=== PATIENT | female | born 1990 | race Caucasian/White ===

== ENCOUNTER 2020-01-31 05:58 | Inpatient (IN) | payer BC ==
[~2020-01-31] VITALS: Ht 167.6 cm; Wt 72.6 kg
[2020-01-31 06:05] VITALS: BP 120/81
--- NOTE | 2020-01-31 06:05 | NUR ---
ED Nurse Note: Pt [facility] from home pt c/o severe mid to lower back pain 10/10 radiating to legs bilaterally. Pt reports she was exercising on a stationary bike and felt a muscle spasm 2 days ago, since then pt has difficulty walking d/t the pain. Pt denies traumatic injury, denies numbness, tingling on lower extremities.
[2020-01-31] MEDS ORDERED: Methocarbamol 750mg tab ORAL ONE (06:45)
[2020-01-31] MEDS ORDERED: Ketorolac 30mg Inj IV ONE (06:45)
[2020-01-31] MEDS ORDERED: Morphine Sulfate 4mg/ml Inj (IV USE ONLY) IVP ONE (07:15)
[2020-01-31 07:53] LABS: BASOPHILS % (AUTO) 1.1 % (0.0-2.0); EOSINOPHILS % (AUTO) 2.8 % (0.0-3.0); HEMATOCRIT 40.2 % (37.0-47.0); HEMOGLOBIN 13.1 G/DL (12.0-16.0); LYMPHOCYTES % (AUTO) 25.7 % (20.0-45.0); MEAN CORPUSCULAR VOLUME 94 FL (80-99); MONOCYTES % (AUTO) 6.9 % (1.0-10.0); NEUTROPHILS % (AUTO) 63.6 % (45.0-75.0); PLATELET COUNT 206 K/UL (150-450); RED BLOOD COUNT 4.28 M/UL (4.20-5.40); RED CELL DISTRIBUTION WIDTH 11.2 % (11.6-14.8); WHITE BLOOD COUNT 7.1 K/UL (4.8-10.8)
[2020-01-31 08:24] LABS: ANION GAP 8 mmol/L (5-15); BLOOD UREA NITROGEN 18 mg/dL (7-18); CALCIUM 8.5 MG/DL (8.5-10.1); CARBON DIOXIDE 26 MMOL/L (21-32); CHLORIDE 104 MMOL/L (98-107); CREATININE 0.8 MG/DL (0.55-1.30); SODIUM 138 MMOL/L (136-145)
[2020-01-31 08:29] LABS: ALANINE AMINOTRANSFERASE 27 U/L (12-78); ALBUMIN/GLOBULIN RATIO 1.4 (1.0-2.7); ALKALINE PHOSPHATASE 42 U/L (46-116); ASPARTATE AMINO TRANSFERASE 18 U/L (15-37); BILIRUBIN,TOTAL 0.4 MG/DL (0.2-1.0)
--- NOTE | 2020-01-31 09:10 | NUR ---
ED Nurse Note: Pt uanble to provide urine at this time. ERMD notified.
--- NOTE | 2020-01-31 09:30 | NUR ---
ED Nurse Note: Pt taken to MRI via gurney accompanied by a tech.
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
--- NOTE | 2020-01-31 10:41 | NUR ---
ED Nurse Note: Pt returned from MRI, not in any distress.
--- NOTE | 2020-01-31 10:46 | Diagnostic Imaging Report ---
EXAM: MR Lumbar Spine Without Intravenous Contrast CLINICAL HISTORY: BK PAIN TECHNIQUE: Magnetic resonance images of the lumbar spine without intravenous contrast in multiple planes. COMPARISON: No relevant prior studies available. FINDINGS: There are 5 lumbar-type vertebral bodies. The normal-appearing conus medullaris. The thecal sac terminates at S1-S2. The vertebral body heights and alignment are maintained. Mild straightening of the lumbar lordosis. There is no evidence of ligamentous injury. The bone marrow signal is homogeneous. At T12-L1: No spinal canal stenosis. At L1-L2: No spinal canal or foraminal stenosis. No disc bulge or herniation. At L2-L3: No spinal canal or foraminal stenosis. No disc bulge or herniation. At L3-L4: No spinal canal or foraminal stenosis. No disc bulge or herniation. At L4-L5: Central disc herniation (6 mm AP) with annular tear (high intensity zone), which contributes to mild spinal canal stenosis. No foraminal stenosis. At L5-S1: No spinal canal or foraminal stenosis. No disc bulge or herniation. Evaluation of the paraspinal musculature demonstrates no significant atrophy. The visualized intra-abdominal contents are grossly unremarkable. IMPRESSION: L4-L5: Central disc herniation (6 mm AP) with annular tear (high intensity zone), which contributes to mild spinal canal stenosis. No foraminal stenosis.
[2020-01-31] MEDS ORDERED: HYDROcodone/Acetamin 5/325 tab ORAL ONE (11:00)
--- NOTE | 2020-01-31 11:10 | NUR ---
ED Nurse Note: Urine sent to lab.
[2020-01-31 11:38] LABS: APPEARANCE,URINE SLIGHTLY CLOUDY; BILIRUBIN, URINE NEGATIVE (NEGATIVE); COLOR,URINE PALE YELLOW; GLUCOSE, URINE (UA) NEGATIVE (NEGATIVE); KETONES,URINE NEGATIVE (NEGATIVE); LEUKOCYTE ESTERASE ,URINE NEGATIVE (NEGATIVE); NITRITE,URINE NEGATIVE (NEGATIVE); PH,URINE 6 (4.5-8.0); PROTEIN,URINE NEGATIVE (NEGATIVE); UROBILINOGEN,URINE NORMAL MG/DL (0.0-1.0)
--- NOTE | 2020-01-31 12:00 | NUR ---
TRANSFER TO FLOOR: Patient transferred to [facility] via rney accompanied by a tech. Pt AAOx4, verbally responsive. No SOB, on room air. IV line on left AC 20g patent and intact. No skin issues. All belongings sent with the patient.
--- NOTE | 2020-01-31 12:01 | NUR ---
ED Nurse Note: Report given to Perla ODOM.
[2020-01-31 12:02] VITALS: BP 118/74
[2020-01-31] MEDS ORDERED: LAMICTAL150 MG ORAL (12:04)
[2020-01-31] MEDS ORDERED: VIMPAT100 MG PO (12:04)
[2020-01-31 12:10] VITALS: BP 144/83
--- NOTE | 2020-01-31 12:10 | NUR ---
NURSE NOTES: Report received from Alisa ODOM, in ER. Patient received to 314-2 via gurney on RA in stable condition. LAC saline lock intact, site asymptomatic, flushed, patent. Oriented patient to room and call light. Belongings reviewed and signed by patient (banda recounted with patient). Seizure pads applied to siderails. Patient denies any rest falls. Lidocaine patch to lower back. Offered ice compress or heating pad, patient refused at this time.Neuros intact, skin warm, pulses palpable, no NT, wiggles, moves all extremities. Lower back pain 5/10, will review orders and medicate as needed. Pill box sent down to pharmacy security, patient aware. Call light in reach, bed in lowest position, will continue to monitor.
[2020-01-31] MEDS ORDERED: Cyclobenzaprine 10mg Tab ORAL SCH (13:45)
[2020-01-31] MEDS ORDERED: Morphine Sulfate 2mg/ml Inj(IV/IM USE ONLY) IVP PRN ×2 (13:45→21:00)
--- NOTE | 2020-01-31 14:45 | NUR ---
NURSE NOTES: Spoke with Dyan in Pharmacy, due to scheduled Motrin and Flexeril (was on eMAR for now), but patient would like Morphine 1 mg IVP now instead, discussed with Dyan if Motrin and Flexeril can be given an hour after Morphine and then again at scheduled 1800, Dyan confirmed it's okay to give. See eMAR. Addendum: 01/31/20 at 1822 by Cailin Barclay RN Spoke with Shey Zaidi.
[2020-01-31] MEDS ORDERED: FOLIC ACID1 MG ORAL (15:05)
--- NOTE | 2020-01-31 16:30 | NUR ---
NURSE NOTES: Patient requesting copy of her MRI results (done today), Medical Records form provided, completed by patient and sent down to Medical Records office, slid form under door.
[2020-01-31 17:37] VITALS: BP 103/60
--- NOTE | 2020-01-31 18:22 | NUR ---
NURSE NOTES: Reviewed eMAR with Shey in pharmacy once more regarding timing for Motrin and Flexeril, per Shey times will be reviewed and administration times will be edited.
--- NOTE | 2020-01-31 19:08 | NUR ---
NURSE NOTES: Dr. Steele notified that patient complains of constipation (bowel sounds present/hypoactive and able to pass gas), last BM 01/27 and would like a higher dose of Morphine, orders received. Will update patient.
--- NOTE | 2020-01-31 19:11 | NUR ---
NURSE HAND-OFF: Important Events on Shift:ER admission at 1210, pain management, PT evaluation 01/31 Patient Status: stable Diet: regular Pending Orders: PT evaluation Pending Results/Labs:none Pending MD notification:none Latest Vital Signs: Temperature 98.7 , Pulse 68 , B/P 103 /60 , Respiratory Rate 19 , O2 SAT 99 , Room Air, O2 Flow Rate . Vital Sign Comment: none Latest Braswell Fall Score: 35 Fall Risk: Medium Risk Safety Measures: Call light Within Reach, Bed Alarm , Side Rails Side Rails x2, Bed position Low and Locked. Fall Precautions: Yellow Socks Yellow Gown Door Sign Patient Fall Education Report given to Mariana RN.
[2020-01-31] MEDS ORDERED: Lactulose 20gm/30ml UDC ORAL PRN (19:30)
--- NOTE | 2020-01-31 19:30 | NUR ---
NURSE NOTES: Receive a report from ILENE Simeon. Pt is awake and alert. Expressing difficulty in ambulating d/t back pain and numbness in right thigh. Will provide pain medication as ordered. IV on left AC without infiltration. BSC is next to bed. Last seizure attack was 1&1/2 years ago. Padded on both side rails. Call light within reach. Will continue to monitor.
[2020-01-31 20:00] VITALS: BP 95/60
[2020-01-31] MEDS ORDERED: Lacosamide 50mg tablet ORAL SCH (21:00)
--- NOTE | 2020-01-31 21:30 | NUR ---
NURSE NOTES: Given prn Morphine 2mg IVS for back pain and Lactulose for constipation. Encourage oral hydration. Will continue to monitor.
[2020-01-31] MEDS: Docusate 250mg cap ORAL SCH (21:58)
[2020-01-31] MEDS: Morphine Sulfate 2mg/ml Inj(IV/IM USE ONLY) IVP PRN (22:00)
[2020-02-01] VITALS: BP 89/58
[2020-02-01 04:00] VITALS: BP 103/65
[2020-02-01] MEDS: Morphine Sulfate 2mg/ml Inj(IV/IM USE ONLY) IVP PRN (04:07)
--- NOTE | 2020-02-01 07:20 | NUR ---
NURSE HAND-OFF: Important Events on Shift: back pain-morphine 2x, constipated-given prn medication Patient Status: [stable] Diet: [regular diet] Pending Orders: [-] Pending Results/Labs:[-] Pending MD notification:[oral pain medication] Latest Vital Signs: Temperature 98.2 , Pulse 77 , B/P 103 /65 , Respiratory Rate 18 , O2 SAT 95 , Room Air, O2 Flow Rate . Vital Sign Comment: [] Latest Braswell Fall Score: 35 Fall Risk: Medium Risk Safety Measures: Call light Within Reach, Bed Alarm , Side Rails Side Rails x2, Bed position Low and Locked. Fall Precautions: Yellow Socks Patient Fall Education Report given to ILENE Simeon.
--- NOTE | 2020-02-01 07:24 | NUR ---
NURSE NOTES: Report received from o RN, rounds made. Patient resting in semi-fowlers position in bed. AOx4, calm, respirations even/unlabored on RA. Lower back pain 5/10, denies need for pain medication at this time. LAC saline lock intact, site asymptomatic. Encouraged PO fluid intake. Up to BSC with assist. Plans for PT evaluation today. Call light in reach, bed in lowest position, will continue to monitor.
[2020-02-01 08:00] VITALS: BP 122/69
[2020-02-01] MEDS ORDERED: Cyclobenzaprine 10mg Tab ORAL SCH (09:00)
[2020-02-01] MEDS: Docusate 250mg cap ORAL SCH ×2 (09:43→18:23)
[2020-02-01] MEDS ORDERED: HYDROcodone/Acetamin 5/325 tab ORAL PRN (10:15)
[2020-02-01] MEDS ORDERED: HYDROcodone/Acetamin 10/325 tab ORAL PRN (10:15)
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
--- NOTE | 2020-02-01 10:49 | Consultation ---
History of Present Illness General Date patient seen: Feb 01, 2020 Chief Complaint: Present Illness Allergies: Coded Allergies: No Known Allergies (Unverified , 01/31/20) Medication History Scheduled Folic Acid* (Folic Acid*), 1 MG ORAL DAILY, (Reported) Lacosamide (Vimpat), 100 MG PO BID, (Reported) Lamotrigine* (Lamictal*), 200 MG ORAL TWICE A DAY, (Reported) Patient History Healthcare decision maker N Resuscitation status Advanced Directive on File Physical Exam Last 24 Hour Vital Signs Date Time Temp Pulse Resp B/P (MAP) Pulse Ox O2 Delivery O2 Flow Rate FiO2 02/01/20 04:00 98.2 77 18 103/65 (78) 95 02/01/20 00:00 98.2 76 18 89/58 (68) 95 01/31/20 21:00 Room Air 01/31/20 20:00 98.4 74 18 95/60 (72) 97 01/31/20 17:37 98.7 68 19 103/60 (74) 99 01/31/20 12:14 Room Air 01/31/20 12:10 98.4 110 21 144/83 (103) 96 01/31/20 12:02 97.7 77 19 118/74 100 Room Air 01/31/20 12:00 97.7 80 18 120/81 99 Room Air Intake and Output 01/31/20 02/01/20 19:00 07:00 Intake Total 717 ml Balance 717 ml Intake Oral 717 ml # Voids 3 1 Laboratory Tests Test 01/31/20 11:10 Urine Color Pale yellow Urine Appearance Slightly cloudy Urine pH 6 (4.5-8.0) Urine Specific Newcomb 1.015 (1.005-1.035) Urine Protein Negative (NEGATIVE) Urine Glucose (UA) Negative (NEGATIVE) Urine Ketones Negative (NEGATIVE) Urine Blood Negative (NEGATIVE) Urine Nitrite Negative (NEGATIVE) Urine Bilirubin Negative (NEGATIVE) Urine Urobilinogen Normal MG/DL (0.0-1.0) Urine Leukocyte Esterase Negative (NEGATIVE) Urine RBC 0 /HPF (0 - 2) Urine WBC 0-2 /HPF (0 - 2) Urine Squamous Epithelial Cells Many /LPF (NONE/OCC) H Urine Bacteria Few /HPF (NONE) Urine HCG, Qualitative Negative (NEGATIVE) Height (Feet): 5 Height (Inches): 6.00 Weight (Pounds): 160 Medications Current Medications Medications (Trade) Dose Ordered Sig/Claude Route PRN Reason Start Time Stop Time Status Last Admin Dose Admin Acetaminophen (Tylenol) 650 mg Q6H PRN ORAL For Headache 01/31/20 13:45 03/01/20 13:44 Acetaminophen/ Hydrocodone Bitart ([place] 10/325) 1 tab Q4H PRN ORAL Severe Pain (Pain Scale 7-10) 02/01/20 10:15 02/08/20 10:14 Acetaminophen/ Hydrocodone Bitart ([place] 5/325) 1 tab Q4H PRN ORAL Moderate Pain (Pain Scale 4-6) 02/01/20 10:15 02/08/20 10:14 Cyclobenzaprine HCl (Flexeril) 10 mg TWICE A DAY ORAL 02/01/20 09:00 02/08/20 08:59 02/01/20 09:43 Docusate Sodium (Colace) 250 mg TWICE A DAY ORAL 01/31/20 19:30 03/01/20 19:29 02/01/20 09:43 Folic Acid (Folate) 1 mg DAILY ORAL 01/31/20 21:00 03/01/20 20:59 01/31/20 22:06 Gabapentin (Neurontin) 300 mg TWICE A DAY ORAL 02/01/20 10:15 03/02/20 10:14 Ibuprofen (Motrin) 800 mg THREE TIMES A DAY ORAL 02/01/20 09:00 03/02/20 08:59 02/01/20 09:44 Lacosamide (Vimpat) 100 mg Q12H ORAL 02/01/20 20:30 05/01/20 20:29 Lactulose (Cephulac) 30 gm BID ORAL 02/01/20 10:15 03/01/20 19:29 Lamotrigine (LaMICtal) 200 mg Q12H ORAL 02/01/20 20:30 03/02/20 20:29 Morphine Sulfate (Morphine Sulfate) 2 mg Q6H PRN IVP Severe Breakthru Pain (>7) 01/31/20 19:30 02/07/20 19:29 02/01/20 04:07 Assessment/Plan Assessment/Plan: (1) Lumbar Radiculopathy (2) Lumbar Herniated disc seen dictated Angel Beal Feb 01, 2020 10:49
[2020-02-01] MEDS: Lactulose 20gm/30ml UDC ORAL SCH ×2 (11:45→18:23)
[2020-02-01] MEDS: Methocarbamol 500mg tab ORAL SCH ×2 (11:46→18:24)
[2020-02-01 12:00] VITALS: BP 112/66
--- NOTE | 2020-02-01 13:45 | NUR ---
NURSE NOTES: Message left for Dr. Mayen regarding new orders for consult.
--- NOTE | 2020-02-01 14:24 | NUR ---
NURSE NOTES: Patient refused Motrin 1300 dose, states, "I don't really need it right now, my pain is 5/10, it's tolerable". Reviewed eMAR with patient, aware of PRN pain medication, if she experiences change in pain, verbalized understanding. Patient resting, right lateral position, taking nap. Will continue to monitor.
[2020-02-01 16:00] VITALS: BP 118/61
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
--- NOTE | 2020-02-01 16:10 | NUR ---
PT Note PT laura completed, treatment initiated. Patient has low back pain, radiating to the R thigh, limiting her mobility and activity tolerance and requiring assist in mobility and gait. Patient needs PT services to instruct/train on proper body mechanics, log rolling techniques and increase muscle strength to improve her safety in mobility and gait to enable her to return home. Addendum: 02/01/20 at 1611 by MILAGROS ECKERT PT Amended: Links added.
--- NOTE | 2020-02-01 16:22 | NUR ---
NURSE NOTES:DR. BOYKIN CALLED IN AND INFORMED RE:SPINAL CONSULT,. TO SEE PT.TOMORROW AFTERNOON.
--- NOTE | 2020-02-01 16:30 | NUR ---
NURSE NOTES: Patient up to bathroom, with RW, BSC over toilet, had normal BM (brown formed moderate amount, patient report stool was hard), encouraged hydration, fiber foods (patient has prunes at bedside), laxatives/stool softeners as ordered and activity, patient verbalized understanding.
--- NOTE | 2020-02-01 19:20 | NUR ---
NURSE HAND-OFF: Important Events on Shift:PT evaluation done, ambulates to bathroom with RW (BSC over toilet), plan for Dr. Mayen to see patient tomorrow (patient aware) Patient Status: stable Diet: regular Pending Orders: Dr. Mayen consult Pending Results/Labs:none Pending MD notification:none Latest Vital Signs: Temperature 98.4 , Pulse 75 , B/P 118 /61 , Respiratory Rate 18 , O2 SAT 97 , Room Air, O2 Flow Rate . Vital Sign Comment: none Latest Braswell Fall Score: 35 Fall Risk: Medium Risk Safety Measures: Call light Within Reach, Bed Alarm , Side Rails Side Rails x2, Bed position Low and Locked. Fall Precautions: Yellow Socks Yellow Gown Door Sign Patient Fall Education Report given to Amelia ODOM.
--- NOTE | 2020-02-01 19:25 | NUR ---
NURSE NOTES: Received report from ILENE Simeon. Rounds done. Patient alert and oriented. No distress noted. Rates pain at 4/10 but at this time doesn't wish to take medications. Encouraged to call as needed. Bed in low position, locked, side rails upx 2, call light within reach. Will continue to monitor.
[2020-02-01 20:00] VITALS: BP 108/70
[2020-02-01] MEDS: Lacosamide 50mg tablet ORAL SCH (21:36)
[2020-02-02] VITALS (7 sets, daily range): BP systolic 94–126; BP diastolic 51–75
[2020-02-02] MEDS: Methocarbamol 500mg tab ORAL SCH ×3 (03:24→18:57)
--- NOTE | 2020-02-02 07:15 | History and Physical Report ---
DATE OF ADMISSION: 01/31/2020 HISTORY OF PRESENT ILLNESS: This is a 29-year-old white female who who came to the emergency room for having severe intractable back pain and muscle pull while she was trying to ride a bike. The patient has a problem before that but it was not so bad. The patient also complaining of numbness and tingling, pain is going to go to the PAST MEDICAL HISTORY: Significant for seizure, history of chronic back pain is controlled. MEDICATIONS: Folic acid, Vimpat for seizure, Lamictal for seizure. ALLERGIES: NKA. FAMILY HISTORY: Noncontributory. SOCIAL HISTORY: The patient lives at home. 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 The patient denies any smoking and drinking. Denies any illegal drugs. REVIEW OF SYSTEMS: Complaining lot of pain, has pain on and off intermittently but is worse now, has had seizure about a year and half ago and has been stable since then. No fever. No chills. No nausea. No vomiting. No urinary symptoms. OBJECTIVE: GENERAL: NAD. VITAL SIGNS: Blood pressure 103/65, pulse 77, respirations 18, temperature 98.2. HEENT: AT/NC. EOMI. PERRLA. NECK: Supple. No JVD. CHEST: Bilateral decreased breath sounds. CARDIOVASCULAR: Regular rhythm. No gallop. No murmur. ABDOMEN: Soft. Positive bowel sounds. BACK: Tenderness on lumbar 1 to 5 spine. Pain radiate to right thigh. GENITOURINARY: Deferred. LABORATORY AND DIAGNOSTIC DATA: White count 7.1, hemoglobin 13, hematocrit 40, platelets are 206. Chemistry panel, Sodium 138, potassium 4, BUN 18, creatinine 0.8. HCG is negative. Her urine is negative. Imaging reports, the patient has MRI of lumbar spine showing a no spinal canal stenosis, L4-L5 central disc herniation, 6 mm annular tear which contributes to mild , no foraminal stenosis, L4-L5 central disc herniation with annular tear. ASSESSMENT: 1. Spinal canal stenosis on L4-L5. 2. Seizure. 3. Chronic pain is getting worse. 4. Chronic constipation, added Colace as well as lactulose routinely. Continue Lamictal. Continue Vimpat, added gabapentin 300 b.i.d., added [place] for moderate pain and morphine for severe pain. Continue lactulose, ibuprofen, Flexeril, folic acid, PT and OT, discussed with physical therapy. Consider also a spine surgery consult. Chip Setele M.D. DR: Braden JOB#: [id number] CC:
--- NOTE | 2020-02-02 07:20 | NUR ---
NURSE HAND-OFF: Important Events on Shift:[] Patient Status: []stable Diet: regular Pending Orders: [] Pending Results/Labs:[] Pending MD notification:[] Latest Vital Signs: Temperature 97.9 , Pulse 83 , B/P 105 /51 , Respiratory Rate 20 , O2 SAT 96 , Room Air, O2 Flow Rate . Vital Sign Comment: [] Latest Braswell Fall Score: 35 Fall Risk: Medium Risk Safety Measures: Call light Within Reach, Bed Alarm , Side Rails Side Rails x2, Bed position Low and Locked. Fall Precautions: Yellow Socks Yellow Gown Door Sign Patient Fall Education Report given to ILENE Simeon
--- NOTE | 2020-02-02 07:21 | NUR ---
NURSE NOTES: Report received from Amelia ODOM, rounds made. Patient resting in semi-fowlers position in bed. AOx4, calm, respirations even/unlabored on RA. Lower back pain 5/10, denies need for pain medication at this time, wants to wait for scheduled Motrin/Gabapentin, reports achy pain that radiates to left thigh to knee now (similar to right thigh to knee pain), denies NT, skin warm, will update Dr. Mayen. LAC saline lock intact, site asymptomatic. Encouraged PO fluid intake. Up to BRP with assist. Plans for Dr. Mayen consult today. Call light in reach, bed in lowest position, will continue to monitor.
--- NOTE | 2020-02-02 08:37 | General Progress Note ---
Subjective Date patient seen: Feb 02, 2020 Time patient seen: 07:15 - am Constitutional: Reports: no symptoms HEENT: Reports: no symptoms Cardiovascular: Reports: no symptoms Respiratory: Reports: no symptoms Gastrointestinal/Abdominal: Reports: no symptoms Genitourinary: Reports: no symptoms Neurologic/Psychiatric: Reports: no symptoms Endocrine: Reports: no symptoms Hematologic/Lymphatic: Reports: no symptoms Allergies: Coded Allergies: No Known Allergies (Unverified , 01/31/20) Subjective HISTORY OF PRESENT ILLNESS: This is a 29-year-old female who is being been seen on the Med[facility]Surg floor of [facility]. Patient is in bed and continues to c/o back pain. Waiting to be seen by Neurosurgeon. Trying to get the epidural injection approved for outpt procedure. Objective Last 24 Hour Vital Signs Date Time Temp Pulse Resp B/P (MAP) Pulse Ox O2 Delivery O2 Flow Rate FiO2 02/02/20 04:00 97.9 83 20 105/51 (69) 96 02/02/20 00:00 98.1 77 20 94/58 (70) 96 02/01/20 21:00 Room Air 02/01/20 20:00 99.0 71 20 108/70 (83) 97 02/01/20 16:00 98.4 75 18 118/61 (80) 97 02/01/20 12:00 98.8 75 20 112/66 (81) 98 02/01/20 09:00 Room Air Intake and Output 02/01/20 02/02/20 19:00 07:00 Intake Total 880 ml 200 ml Balance 880 ml 200 ml Intake Oral 880 ml 200 ml # Voids 4 2 # Bowel Movements 1 Height (Feet): 5 Height (Inches): 6.00 Weight (Pounds): 160 Objective PHYSICAL EXAMINATION: GENERAL: Alert, awake, and oriented. LUNGS: Clear bilaterally. HEART: S1 and S2 regular. ABDOMEN: Soft and nontender. EXTREMITIES: No cyanosis. No clubbing. NEURO: No changes. Assessment/Plan Assessment/Plan: (1) Lumbar Radiculopathy (2) Lumbar Herniated disc Patient to be continued on [place] and Morphine. D/w Dr. Marion and he concurred. Angel Beal Feb 02, 2020 08:37
[2020-02-02] MEDS: Lacosamide 50mg tablet ORAL SCH ×2 (08:40→20:23)
[2020-02-02] MEDS: Docusate 250mg cap ORAL SCH ×2 (08:40→17:51)
[2020-02-02] MEDS: Lactulose 20gm/30ml UDC ORAL SCH ×2 (08:40→17:50)
[2020-02-02] MEDS: Morphine Sulfate 2mg/ml Inj(IV/IM USE ONLY) IVP PRN (09:57)
--- NOTE | 2020-02-02 10:50 | NUR ---
NURSE NOTES: Patient reports feeling mild nausea/no emesis, after PT. Dr. Steele notified for orders. Order received for Zofran 4 mg IV Q6H PRN for NV. Offered patient at this time, patient reports the nausea has subsided.
--- NOTE | 2020-02-02 11:42 | NUR ---
NURSE NOTES: Rolling walker received from central supply, placed in patient's room for PT to assemble with next session. Dejuan OVALLES aware.
[2020-02-02] MEDS ORDERED: Medrol Dosepak (RX TO ENTER) ORAL SCH (11:45)
--- NOTE | 2020-02-02 13:12 | NUR ---
CASE MANAGEMENT:REVIEW SI;LUMBAR RADICULOPATHY. LUMBAR HERNIATED DISC. 98.6 86 20 94/58 95% ON RA NO LABS AVAILABLE IS;MORPHINE SULFATE IV Q6 PRN MOTRIN PO TID ROBAXIN PO Q8 GABAPENTIN PO BID MED SURG STATUS DCP;FROM HOME
[2020-02-02] MEDS: methylPREDNISolone 4mg BIDLS ORAL SCH ×2 (14:02→17:13)
--- NOTE | 2020-02-02 15:51 | Consultation ---
Consult Note Consult Note full note dictated Assessment/Plan HNP L spine. No surgery at this time. pain mangment and conservative care. can see patient as outpatient if fails conservative care. Pavel Mayen MD Feb 02, 2020 15:51
--- NOTE | 2020-02-02 16:45 | Consultation ---
DATE OF CONSULTATION: 02/02/2020 SPINE SURGICAL CONSULTATION SURGEON: Pavel Mayen MD. REFERRING PHYSICIAN: Chip Steele MD. REASON FOR CONSULTATION: Intractable back pain. HISTORY OF PRESENT ILLNESS: The patient is a very pleasant 29-year-old woman with acute onset of pain approximately 4 or 5 days ago. This happened as she was in a spinning class on her [employer] stationary bicycle. She felt immediate onset of pain in her back with the inability to move. Due to intractable pain, she was brought by paramedics to the hospital. She has some vague pain down the legs, right and left. The pain is along the top of the thigh. She denies any bowel or bladder incontinence. An MRI was obtained and a spine surgical consultation was obtained. Pain management has recommended epidural injection which has not been approved by the carrier. They recommended oral steroids. PAST MEDICAL HISTORY: Significant for seizure disorder. PAST SURGICAL HISTORY: None. MEDICATIONS: Please see medication reconciliation report. ALLERGIES: No known drug allergies. PHYSICAL EXAMINATION: GENERAL: The patient is pleasant, however, during the exam she is lying in the hospital bed, attempts to mobilize elicit back pain and spasm. She is however able to stand and walk a few steps. Formal range of motion of lumbar spine was not performed. Deep tendon reflexes symmetric. Sensation both lower extremities intact. Motor strength testing bilateral quads, tib ant, EHL and gastroc soleus were intact. MRI: MRI of lumbar spine was reviewed. The MRI confirms the lowest most mobile segments of the spine with a central disk rupture with subligamentous extrusion. There is also superimposed annular tear. DIAGNOSES: Disk herniation, lowest most mobile segment, lumbar spine. PLAN: At this point, I have had a detailed discussion with the patient. I have discussed with her treatment options. I would hold off on surgical intervention for the time being due to the relative acuity of her disk herniation. I explained to her that there is good chance of improvement nonsurgically. Physical therapy, core strengthening, trunk stabilization, gradual mobilization, anti-inflammatories, muscle relaxers, and analgesics would be appropriate. Gradual weaning of the narcotic analgesics to non-narcotics is recommended. In the event that the patient fails conservative care, epidural injections should be considered. Surgical intervention need to be considered if all else and all other conservative treatment fails. I had this discussion with the patient as well as her mother present in the hospital room. Pavel Mahesh Mayen DR: Jaylen JOB#: [id number] CC: JONAH
--- NOTE | 2020-02-02 17:16 | General Progress Note ---
Subjective Allergies: Coded Allergies: No Known Allergies (Unverified , 01/31/20) Subjective doing better pain controlled / walking with pt Objective Last 24 Hour Vital Signs Date Time Temp Pulse Resp B/P (MAP) Pulse Ox O2 Delivery O2 Flow Rate FiO2 02/02/20 16:00 98.2 85 18 122/75 (91) 97 02/02/20 12:00 98.6 86 18 108/64 (79) 96 02/02/20 09:00 Room Air 02/02/20 08:00 98.2 75 18 99/57 (71) 95 02/02/20 04:00 97.9 83 20 105/51 (69) 96 02/02/20 00:00 98.1 77 20 94/58 (70) 96 02/01/20 21:00 Room Air 02/01/20 20:00 99.0 71 20 108/70 (83) 97 Intake and Output 02/01/20 02/02/20 19:00 07:00 Intake Total 880 ml 200 ml Balance 880 ml 200 ml Intake Oral 880 ml 200 ml # Voids 4 2 # Bowel Movements 1 Height (Feet): 5 Height (Inches): 6.00 Weight (Pounds): 160 General Appearance: no apparent distress, alert EENT: PERRL/EOMI Neck: non-tender, supple Cardiovascular: regular rhythm Respiratory/Chest: lungs clear Abdomen: non tender, soft Extremities: other - tenderness l-s spine with muscle spasm Assessment/Plan Status: doing well, ambulating well Assessment/Plan: 1 back pain 2 spinal canal stenosis 3 hx sizure 4 constipation neurosurgery and pain management on the case added decadrone cont norco, flexril and neurontin dc plna home tomorrow with pt Castro Steele MD Feb 02, 2020 17:16
--- NOTE | 2020-02-02 19:30 | NUR ---
NURSE HAND-OFF: Important Events on Shift:Medrol started today, PT (ambulated halls/stairs, experienced severe pain 10/19 after PT, medicated with Morphine 2mg IV), plans for discharge home tomorrow, copy of MRI Lumbar Spine given to patient Patient Status: stable Diet: Regular Pending Orders: possible discharge home tomorrow 02/02 Pending Results/Labs:none Pending MD notification:none Latest Vital Signs: Temperature 98.2 , Pulse 85 , B/P 122 /75 , Respiratory Rate 18 , O2 SAT 97 , Room Air, O2 Flow Rate . Vital Sign Comment: none Latest Braswell Fall Score: 35 Fall Risk: Medium Risk Safety Measures: Call light Within Reach, Bed Alarm , Side Rails Side Rails x2, Bed position Low and Locked. Fall Precautions: Yellow Socks Yellow Gown Door Sign Patient Fall Education Report given to Alcon ODOM.
--- NOTE | 2020-02-02 19:47 | NUR ---
NURSE NOTES: Received report from ILENE Simeon. Patient seen at bedside. In stable condition and denies any pain as of the moment. Patient requesting for a CD copy of her MRI, will follow up with dayshift to follow up with medical records.
[2020-02-03] MEDS: Methocarbamol 500mg tab ORAL SCH ×2 (03:57→12:13)
[2020-02-03 04:00] VITALS: BP 108/73
[2020-02-03] MEDS ORDERED: methylPREDNISolone 4mg QAC ORAL SCH (06:30)
--- NOTE | 2020-02-03 06:35 | NUR ---
NURSE HAND-OFF: Important Events on Shift:Patient able to ambulate independently in the restroom, requesting CD record of MRI. Will follow up with day shift nurse. Patient reported that pain is well managed, refuses additional pain medication Patient Status: stable Diet: reg Pending Orders: [] Pending Results/Labs:[] Pending MD notification:[] Latest Vital Signs: Temperature 97.3 , Pulse 87 , B/P 108 /73 , Respiratory Rate 18 , O2 SAT 97 , Room Air, O2 Flow Rate . Vital Sign Comment: [] Latest Braswell Fall Score: 35 Fall Risk: Medium Risk Safety Measures: Call light Within Reach, Bed Alarm , Side Rails Side Rails x2, Bed position Low and Locked. Fall Precautions: Yellow Socks Yellow Gown Door Sign Patient Fall Education Report given to Rashid ODOM
--- NOTE | 2020-02-03 07:37 | NUR ---
NURSE NOTES: Report given to Rashid ODOM
[2020-02-03 08:00] VITALS: BP 99/66
--- NOTE | 2020-02-03 08:00 | NUR ---
NURSE NOTES: Received report from Alcon ODOM. Checked on pt and completed VS, pt VSS, pt verbalized she has pain, will give scheduled dose of motrin. Call light in reach, 3 side rails up and padded, bed at lowest position, yellow socks on, pt demonstrated use of call light and aware to call for help.
--- NOTE | 2020-02-03 08:45 | General Progress Note ---
Subjective Date patient seen: Feb 03, 2020 Time patient seen: 07:00 - am Allergies: Coded Allergies: No Known Allergies (Unverified , 01/31/20) Subjective Constitutional: Reports: no symptoms HEENT: Reports: no symptoms Cardiovascular: Reports: no symptoms Respiratory: Reports: no symptoms Gastrointestinal/Abdominal: Reports: no symptoms Genitourinary: Reports: no symptoms Neurologic/Psychiatric: Reports: no symptoms Endocrine: Reports: no symptoms Hematologic/Lymphatic: Reports: no symptoms Subjective HISTORY OF PRESENT ILLNESS: This is a 29-year-old female who is being been seen on the Med\Surg floor of [facility]. Patient was started on Medrol dosepak due to epidural authorization issues. At this time patient reports that her pain has greatly reduced and is looking forward to being discharged home as per senior branch manager. Was advised to continue extensive PT as an outpt she seems to understand. Objective Last 24 Hour Vital Signs Date Time Temp Pulse Resp B/P (MAP) Pulse Ox O2 Delivery O2 Flow Rate FiO2 02/03/20 04:00 97.3 87 18 108/73 (85) 97 02/02/20 23:59 98.1 68 18 104/58 (73) 96 02/02/20 21:00 Room Air 02/02/20 20:21 98.8 74 18 126/65 (85) 95 02/02/20 16:00 98.2 85 18 122/75 (91) 97 02/02/20 12:00 98.6 86 18 108/64 (79) 96 02/02/20 09:00 Room Air Intake and Output 02/02/20 02/03/20 19:00 07:00 Intake Total 1760 ml 480 ml Balance 1760 ml 480 ml Intake Oral 1760 ml 480 ml # Voids 3 3 # Bowel Movements 1 Height (Feet): 5 Height (Inches): 6.00 Weight (Pounds): 160 Objective PHYSICAL EXAMINATION: GENERAL: Alert, awake, and oriented. LUNGS: Clear bilaterally. HEART: S1 and S2 regular. ABDOMEN: Soft and nontender. EXTREMITIES: No cyanosis. No clubbing. NEURO: No changes. Assessment/Plan Assessment/Plan: (1) Lumbar Radiculopathy (2) Lumbar Herniated disc Patient to be continued on medrol dosepak, [place] and Morphine An RX for Exchange, Robaxin, Neurontin and medrol dosepak was written for patient in anticipation for discharge. Advised to continue PT and f/u with her PMD as well as pain management as outpt. D/w Dr. Marion and he concurred. Angel Beal Feb 03, 2020 08:45
[2020-02-03] MEDS: Docusate 250mg cap ORAL SCH (09:14)
[2020-02-03] MEDS: Lacosamide 50mg tablet ORAL SCH (09:19)
[2020-02-03] MEDS: Lactulose 20gm/30ml UDC ORAL SCH (09:19)
[2020-02-03] MEDS ORDERED: LAMICTAL100 MG ORAL (10:55)
--- NOTE | 2020-02-03 11:29 | General Progress Note ---
Subjective Allergies: Coded Allergies: No Known Allergies (Unverified , 01/31/20) Subjective doing better pain controlled 05/19 walking without assistance Objective Last 24 Hour Vital Signs Date Time Temp Pulse Resp B/P (MAP) Pulse Ox O2 Delivery O2 Flow Rate FiO2 02/03/20 08:00 98.2 78 18 99/66 (77) 99 02/03/20 04:00 97.3 87 18 108/73 (85) 97 02/02/20 23:59 98.1 68 18 104/58 (73) 96 02/02/20 21:00 Room Air 02/02/20 20:21 98.8 74 18 126/65 (85) 95 02/02/20 16:00 98.2 85 18 122/75 (91) 97 02/02/20 12:00 98.6 86 18 108/64 (79) 96 Intake and Output 02/02/20 02/03/20 19:00 07:00 Intake Total 1760 ml 480 ml Balance 1760 ml 480 ml Intake Oral 1760 ml 480 ml # Voids 3 3 # Bowel Movements 1 Height (Feet): 5 Height (Inches): 6.00 Weight (Pounds): 160 General Appearance: alert EENT: PERRL/EOMI Neck: supple Cardiovascular: regular rhythm Respiratory/Chest: lungs clear Abdomen: non tender, soft Extremities: other - lower back pain better 05/19 Neurologic: hazardous substances engineer II-XII grossly normal, oriented x 3 Skin: warm/dry Assessment/Plan Status: doing well, ambulating well Assessment/Plan: 1 back pain 2 spinal canal stenosis 3 hx sizure 4 constipation neurosurgery and pain management on the case added decadrone cont norco, flexril and neurontin dc home with pt out patient prescriptions are in chart explained all the precautions sstretching exercise daily Castro Steele MD Feb 03, 2020 11:29
--- NOTE | 2020-02-03 11:32 | General Progress Note ---
Subjective Allergies: Coded Allergies: No Known Allergies (Unverified , 01/31/20) Subjective doing better pain controlled 05/19 walking without assistance Objective Last 24 Hour Vital Signs Date Time Temp Pulse Resp B/P (MAP) Pulse Ox O2 Delivery O2 Flow Rate FiO2 02/03/20 08:00 98.2 78 18 99/66 (77) 99 02/03/20 04:00 97.3 87 18 108/73 (85) 97 02/02/20 23:59 98.1 68 18 104/58 (73) 96 02/02/20 21:00 Room Air 02/02/20 20:21 98.8 74 18 126/65 (85) 95 02/02/20 16:00 98.2 85 18 122/75 (91) 97 02/02/20 12:00 98.6 86 18 108/64 (79) 96 Intake and Output 02/02/20 02/03/20 19:00 07:00 Intake Total 1760 ml 480 ml Balance 1760 ml 480 ml Intake Oral 1760 ml 480 ml # Voids 3 3 # Bowel Movements 1 Height (Feet): 5 Height (Inches): 6.00 Weight (Pounds): 160 Assessment/Plan Status: doing well, ambulating well Assessment/Plan: 1 back pain 2 spinal canal stenosis 3 hx sizure 4 constipation neurosurgery and pain management on the case added decadrone cont norco, flexril and neurontin dc home with pt out patient prescriptions are in chart explained all the precautions stretching exercise daily fu pcp or my office 1 week call my office if any problem or come to er Castro Steele MD Feb 03, 2020 11:32
[2020-02-03 12:00] VITALS: BP 114/70
[2020-02-03] MEDS: methylPREDNISolone 4mg BIDLS ORAL SCH (12:12)
[2020-02-03] MEDS ORDERED: NORCO 5-325 TA1 EAC1 ORAL (12:38)
[2020-02-03] MEDS ORDERED: NEURONTIN600 MG ORAL (12:39)
[2020-02-03] MEDS ORDERED: ROBAXIN-500MG ORAL (12:41)
[2020-02-03] MEDS ORDERED: NARCAN4 MG NS (12:42)
[2020-02-03] MEDS ORDERED: Flu Vaccine Quadrivalent IM ONE (13:00)
--- NOTE | 2020-02-03 13:39 | NUR ---
NURSE NOTES: Pt discharged in stable condition, w/all belongings accounted for, and w/family at her side. Provided pt w/D/C summary; rs for meds; PT rx that she states she will take to outpatient facility; raised toilet seat; and FWW. Removed IV H/L and ID wristband prior to D/C.
[2020-02-04] MEDS ORDERED: methylPREDNISolone 4mg QHS ORAL SCH (21:00)
--- NOTE | 2020-02-05 11:02 | Discharge Summary ---
Discharge Summary Discharge Summary _ DATE OF ADMISSION: 01/31/2020 DATE OF DISCHARGE: 02/03/20 DISCHARGED BY: Dr. Steele REASON FOR ADMISSION: 29 years old female with past medical history of seizure disorder, presented to emergency department with intractable low back pain. She reported fall 2 days ago while riding her stationary bicycle. Patient landed on the right lower back. Symptoms got progressively worse. Patient had difficulty standing . Pain reported as dull ,10 out of 10, radiating down her right leg. She denied bowel or bladder incontinence. She tried [id number] analgesic and muscle relaxant without much relief. Patient reported similar back pain in the past, which resolved with chiropractic treatment and muscle relaxant. Upon evaluation vital signs were stable . Physical exam revealed no sensory deficit. MRI of lumbar spine revealed L4-L5 central disc herniation with annular tear contributing to mild spinal canal stenosis. No foraminal stenosis. In emergency department patient received analgesic , however patient continue d to have pain and was unable to ambulate . Patient subsequently admitted to medical surgical floor for further management. CONSULTANTS: surgeon Dr. Mayen pain specialist Dr. Marion [facility] COURSE: Patient admitted to medical surgical floor . Surgeon and pain specialist consulted. Seizure precaution maintained. Vimpat continued. Neurontin was added . Pain management was addressed as per pain specialist recommendations. Muscle relaxant continued. Fall precaution maintained. Patient was working with a physical therapist.. Bowel regimen instituted Surgeon discussed treatment options with the patient Surgeon recommended to hold off on surgical intervention for the time being , given the relative acuity of the disc herniation. Patient was explained that there was a good chance of improvement nonsurgically with physical therapy, core strengthening, trunk stabilization, gradual mobilization, anti-inflammatory, muscle relaxant and analgesics. Gradual weaning of the narcotic analgesic to nonnarcotic analgesic was recommended. In case conservative care fails, epidural injection will be considered. Surgical intervention will be considered if all conservative treatments failed. Patient started on Medrol dose pack . Patient clinically improved and was ready for discharge home FINAL DIAGNOSES: Disc herniationL4-L5 Spinal cord stenosis Seizure disorder Constipation Intractable back pain DISCHARGE MEDICATIONS: See Medication Reconciliation list. DISCHARGE INSTRUCTIONS: She was discharged home. Follow-up with a primary care provider in 1 week. I have been assigned to dictate discharge summary for this account. I was not involved in the patient's management. Stella Salas NP Feb 05, 2020 11:02
[2020-02-05] MEDS ORDERED: methylPREDNISolone 4mg after lunch ORAL SCH (12:30)
--- NOTE | 2020-02-06 12:42 | NUR ---
INSURANCE DC SUMMARY/INSTRUCTIONS FAXED TO [facility] [phone] [facility] [phone]
== END 2020-02-03 13:35 | disposition home or self-care (01) | DRG 552 ==
LOC: EDUNIT# 05:58 → EDBD 05:58 → EMR 06:10 → EDBEDREQ 11:38 → 3E 12:00
DX: M51.16 Intervertebral disc disorders with radiculopathy, lumbar region (principal); M48.061 Spinal stenosis, lumbar region without neurogenic claudication; G89.29 Other chronic pain; K59.09 Other constipation; G40.909 Epilepsy, unspecified, not intractable, without status epilepticus
CPT/HCPCS: 36415; 72148; 80053; 81001; 81025; 84703; 85025; 90689; 96374; 96375; 99285